=== PATIENT | female | born 1965 ===

== ENCOUNTER → 2023-03-28 | Outpatient (CLI) | payer BC ==
[2023-03-29 16:02] LABS: Candida species (DNA Probe) Positive (NEGATIVE); G. vaginalis (DNA Probe) Negative (NEGATIVE); T. vaginalis (DNA Probe) Negative (NEGATIVE)
== END | disposition home or self-care (01) ==
LOC: LAB SHORT 17:46 → LAB 17:46
PROVIDERS: Internal Medicine
DX: Z12.4 Encounter for screening for malignant neoplasm of cervix (principal); N76.0 Acute vaginitis
CPT/HCPCS: 87480; 87510; 87660